=== PATIENT | male | born 1975 | race Caucasian/White ===

== ENCOUNTER 2017-11-24 13:09 | Observation (INO) | payer OTHER ==
[~2017-11-24] VITALS: Ht 177.8 cm; Wt 65.9 kg
[2017-11-24 13:21] VITALS: BP 145/82; PULSE 100; RESP 18; O2SAT 100
--- NOTE | 2017-11-24 13:58 | PD ---
HPI Chief Complaint: Chest Pain Time Seen by Provider: 13:38 Travel History International Travel<30 days: No Contact w/Intl Traveler<30days: No Traveled to known affect area: No History of Present Illness HPI 42-year-old male complains chest pain. Patient states that he started having left-sided chest pain last night. Patient states the pain aching pain localized to left lower rib cage area. Patient states that the pain radiated to the epigastric substernal area. Patient states that the pain got better since then. Patient states that he is feeling soreness around epigastric area now. Patient denies any coughing congestion fever chills. Patient denies any nausea vomiting diaphoresis. Patient states that he had abnormal EKG in 2009 with some poor R-wave progression. Patient has a stress test done at that time it was normal. Patient denies history hypertension, diabetes, hyperlipidemia. Patient is non-smoker. Patient denies family history of CAD. PFSH Social History Alcohol Use: Yes Tobacco Use: No Substance Use: No Allergies-Medications (Allergen,Severity, Reaction): Coded Allergies: No Known Allergies (Unverified , 11/24/17) Review of Systems General / Constitutional: No: Fever Eyes: No: Visual changes HENT: No: Headaches Cardiovascular: Positive: Chest Pain or Discomfort Respiratory: No: Shortness of Breath Gastrointestinal: No: Abdominal Pain Genitourinary: No: Dysuria Musculoskeletal: No: Pain Skin: No Rash Neurologic: No: Weakness Psychiatric: No: Depression Endocrine: No: Polydipsia Hematologic/Lymphatic: No: Easy Bruising Physical Exam Narrative GENERAL: Well-nourished, well-developed patient. SKIN: Focused skin assessment warm/dry. HEAD: Normocephalic. EYES: No scleral icterus. No injection or drainage. NECK: Supple, trachea midline. No JVD or lymphadenopathy. CARDIOVASCULAR: Regular rate and rhythm without murmurs, gallops, or rubs. RESPIRATORY: Breath sounds equal bilaterally. No accessory muscle use. GASTROINTESTINAL: Abdomen soft, non-tender, nondistended. MUSCULOSKELETAL: No cyanosis, or edema. BACK: Nontender without obvious deformity. No CVA tenderness. Neurologic exam normal. Data Data Last Documented VS Vital Signs Date Time Temp Pulse Resp B/P (MAP) Pulse Ox O2 Delivery O2 Flow Rate FiO2 11/24/17 13:21 100 18 145/82 (103) 100 Room Air Orders Orders Electrocardiogram (11/24/17 13:50) Complete Blood Count With Diff (11/24/17 13:50) Comprehensive Metabolic Panel (11/24/17 13:50) Creatine Kinase (Cpk) (11/24/17 13:50) Troponin I (11/24/17 13:50) Prothrombin Time / Inr (Pt) (11/24/17 13:50) Act Partial Throm Time (Ptt) (11/24/17 13:50) Lipase (11/24/17 13:50) Chest, Single Ap (11/24/17 13:50) Iv Access Insert/Monitor (11/24/17 13:50) Ecg Monitoring (11/24/17 13:50) Oximetry (11/24/17 13:50) Labs Laboratory Tests Test 11/24/17 13:53 White Blood Count 7.9 TH/MM3 Red Blood Count 5.30 MIL/MM3 Hemoglobin 16.0 GM/DL Hematocrit 45.3 % Mean Corpuscular Volume 85.4 FL Mean Corpuscular Hemoglobin 30.1 PG Mean Corpuscular Hemoglobin Concent 35.3 % Red Cell Distribution Width 12.2 % Platelet Count 221 TH/MM3 Mean Platelet Volume 8.5 FL Neutrophils (%) (Auto) 79.5 % Lymphocytes (%) (Auto) 12.1 % Monocytes (%) (Auto) 6.6 % Eosinophils (%) (Auto) 1.0 % Basophils (%) (Auto) 0.8 % Neutrophils # (Auto) 6.3 TH/MM3 Lymphocytes # (Auto) 1.0 TH/MM3 Monocytes # (Auto) 0.5 TH/MM3 Eosinophils # (Auto) 0.1 TH/MM3 Basophils # (Auto) 0.1 TH/MM3 CBC Comment DIFF FINAL Differential Comment Prothrombin Time 10.8 SEC Prothromb Time International Ratio 1.1 RATIO Activated Partial Thromboplast Time 26.1 SEC Blood Urea Nitrogen 14 MG/DL Creatinine 0.93 MG/DL Random Glucose 95 MG/DL Total Protein 7.6 GM/DL Albumin 4.4 GM/DL Calcium Level 8.6 MG/DL Alkaline Phosphatase 62 U/L Aspartate Amino Transf (AST/SGOT) 20 U/L Alanine Aminotransferase (ALT/SGPT) 37 U/L Total Bilirubin 1.0 MG/DL Sodium Level 140 MEQ/L Potassium Level 4.0 MEQ/L Chloride Level 106 MEQ/L Carbon Dioxide Level 25.3 MEQ/L Anion Gap 9 MEQ/L Estimat Glomerular Filtration Rate 90 ML/MIN Total Creatine Kinase 64 U/L Troponin I LESS THAN 0.02 NG/ML Lipase 180 U/L MDM Medical Decision Making Medical Screen Exam Complete: Yes Emergency Medical Condition: Yes Interpretation(s) 1448 PM. EKG shows sinus rhythm nonspecific ST-T wave change. Last Impressions Chest X-Ray 11/24/17 1350 Signed Impressions: CONCLUSION: Hyperinflation suggesting COPD or reactive airway disease. No acute abnormality. 1456 PM. CBC within normal limits. CMP within normal limits. Cardiac enzymes are normal. Differential Diagnosis Differential diagnosis including musculoskeletal, angina, VT, PE, pneumothorax, GI issue. Narrative Course 42-year-old male with chest pain. Patient will be admitted to the chest pain center. Diagnosis Primary Impression: Chest pain Qualified Codes: R07.9 - Chest pain, unspecified Admitting Information Admitting Physician Requests: Observation Jacob Cullen MD Nov 24, 2017 13:57
[2017-11-24 14:14] LABS: AUTOMATED NEUTROPHIL # 6.3 TH/MM3 (1.8-7.7); BASOPHIL # 0.1 TH/MM3 (0-0.2); BASOPHIL % 0.8 % (0.0-2.0); EOSINOPHIL # 0.1 TH/MM3 (0-0.4); HEMATOCRIT 45.3 % (39.0-51.0); LYMPH % 12.1 % (9.0-44.0); MEAN CELL VOLUME 85.4 FL (80.0-100.0); MEAN CORPUSCULAR HEMOGLOBIN 30.1 PG (27.0-34.0); MEAN CORPUSCULAR HGB CONC 35.3 % (32.0-36.0); MEAN PLATELET VOLUME 8.5 FL (7.0-11.0); MONO % 6.6 % (0.0-8.0); MONOCYTE # 0.5 TH/MM3 (0-0.9); NEUT % 79.5 % (16.0-70.0); PLATELET COUNT 221 TH/MM3 (150-450); RED CELL DISTRIBUTION WIDTH 12.2 % (11.6-17.2); WHITE BLOOD COUNT 7.9 TH/MM3 (4.0-11.0)
[2017-11-24 14:20] LABS: INTERNATIONAL NORMALIZED RATIO 1.1 RATIO; PROTHROMBIN TIME - PATIENT 10.8 SEC (9.8-11.6)
[2017-11-24 14:23] LABS: ALBUMIN 4.4 GM/DL (3.4-5.0); ALT (GPT) 37 U/L (12-78); AST (GOT) 20 U/L (15-37); BICARBONATE 25.3 MEQ/L (21.0-32.0); BLOOD UREA NITROGEN 14 MG/DL (7-18); CALCIUM 8.6 MG/DL (8.5-10.1); CHLORIDE 106 MEQ/L (98-107); CREATININE 0.93 MG/DL (0.60-1.30); GLOMERULAR FILTRATION RATE 90 ML/MIN (>89); GLUCOSE,RANDOM 95 MG/DL (74-106); SODIUM (NA) 140 MEQ/L (136-145)
[2017-11-24 14:27] LABS: ALKALINE PHOSPHATASE 62 U/L (45-117); TOTAL PROTEIN 7.6 GM/DL (6.4-8.2); TROPONIN I LESS THAN 0.02 NG/ML (0.02-0.05)
--- NOTE | 2017-11-24 14:46 | RADRPT ---
EXAM DATE: 11/24/2017 2:43 PM EDT AGE/SEX: 42 years / Male INDICATIONS: Chest pain starting today. CLINICAL DATA: This is the patient's initial encounter. Patient reports that signs and symptoms have been present for 1 day and indicates a pain score of 5/10. MEDICAL/SURGICAL HISTORY: None. None. COMPARISON: No prior exams available for comparison. FINDINGS: Single view chest demonstrates a cardiac and mediastinal contours to be within normal limits. There i s mild hyperinflation suggesting possible COPD. The lungs are otherwise clear. The bony structures ar e intact. CONCLUSION: Hyperinflation suggesting COPD or reactive airway disease. No acute abnormality. Electronically signed by: Jose Hurt MD 11/24/2017 2:45 PM EDT
[2017-11-24] MEDS ORDERED: SODIUM CHLORIDE 0.9% FLUSH 10 ML FLUSH IV FLUSH PRN (15:15)
--- NOTE | 2017-11-24 15:35 | EKG ---
Date Performed: 11/24/2017 Time Performed: 13:16:53 PTAGE: 42 years EKG: Sinus rhythm WITH SINUS ARRHYTHMIA NORMAL ECG NO PREVIOUS TRACING DOCTOR: Phil Winston Interpretating Date/Time 11/24/2017 15:34:54
[2017-11-24 15:37] VITALS: BP 137/93
[2017-11-24] MEDS ORDERED: ACETAMINOPHEN 500 MG CPLT PO PRN (16:00)
[2017-11-24] MEDS ORDERED: ACETAMINOPHEN/HYDROcodone 325 MG/5 MG TAB PO PRN (16:00)
[2017-11-24] MEDS ORDERED: RESP: ALBUTEROL 2.5 MG/IPRATROPIUM 0.5 MG NEB (PRN) INH (16:00)
[2017-11-24] MEDS ORDERED: ONDANSETRON ODT 4 MG TAB PO PRN (16:00)
[2017-11-24] MEDS ORDERED: ALPRAZolam 0.25 MG TAB PO PRN (16:00)
[2017-11-24] MEDS ORDERED: cloNIDine HCL 0.1 MG TAB PO PRN (16:00)
--- NOTE | 2017-11-24 16:03 | HHI.HP ---
HPI Primary Care Physician Unknown Chief Complaint Chest pain History of Present Illness This is a 42-year-old male that presents to ED via private vehicle with complaint of chest discomfort. States he was awoken at 232 this morning with a discomfort in left lower rib area. States is very localized pain. Was mild. Lasted a few seconds and then discomfort radiated into the center of his chest. Symptoms lasted a few minutes and then turned into a soreness which lasted a few seconds. That soreness then continued to recur intermittently several more times each lasting a few seconds. He has not had discomfort since being in the ED. Denies associated shortness of breath, nausea, or diaphoresis. States he had a cardiac workup in 2009. At that time he states he had a normal stress test. Afterwards he saw his physician for further workup to try to figure out what could be causing discomforts. States he had endoscopy, CT, ultrasound, and MRI and really could not find the cause and then the symptoms resolved on 2011 and has not recurred. He was believed to be related to stress at that time. Denies recent illness. Denies fevers or chills. Review of Systems General: Patient denies fevers, chills, and recent travel. HEENT: Patient denies headache, sore throat, difficulty swallowing. Cardiovascular: Has the chest discomfort as mentioned above. Denies sensation of heart beating rapidly or irregularly. No syncope. Denies diaphoresis. Respiratory: Denies shortness of breath or inspirational chest discomfort. Denies coughing wheezing or hemoptysis. GI: Patient denies nausea, vomiting, diarrhea, abdominal pain, bloody stools. Musculoskeletal: Patient denies joint pain or edema. Denies calf pain or edema. Neurovascular: Patient denies numbness, tingling, weakness in extremities. Denies headache. Endocrine: Denies polyuria and polydipsia. Hematologic: Denies easy bruising. Skin: Denies rash or itching. Past Family Social History Allergies: Coded Allergies: No Known Allergies (Unverified , 11/24/17) Past Medical History Denies hypertension, hyperlipidemia, diabetes, and known CAD. Past Surgical History Hernia repair as a child. Active Ordered Medications Current Medications Medications (Trade) Dose Ordered Sig/Yana Route Start Time Stop Time Status Last Admin (NS Flush) 2 ml UNSCH PRN IV FLUSH 11/24/17 15:15 (NS Flush) 2 ml BID IV FLUSH 11/24/17 21:00 Family History Denies family history of CAD. Social History Lifetime non-smoker. Occasional alcohol. Denies illicit drugs. He is and has 2 children. Physical Exam Vital Signs Vital Signs Date Time Temp Pulse Resp B/P (MAP) Pulse Ox O2 Delivery O2 Flow Rate FiO2 11/24/17 15:37 96 18 137/93 (108) 98 11/24/17 13:21 100 18 145/82 (103) 100 Room Air 11/24/17 13:21 18 18 100 Room Air Physical Exam GENERAL: This is a well-nourished, well-developed patient, in no apparent distress. Patient speaks in clear complete sentences. Patient is pleasant. HEENT: Head is atraumatic and normocephalic. Neck is supple without lymphadenopathy and trachea is midline. No JVD or carotid bruits. CARDIOVASCULAR: Regular rate and rhythm without murmurs, gallops, or rubs. RESPIRATORY: Clear to auscultation. Breath sounds equal bilaterally. No wheezes , rales, or rhonchi. Left lower chest wall is tender. No use of accessory muscles. GASTROINTESTINAL: Abdomen is nontender, nondistended. Abdomen soft. No obvious pulsatile mass or bruit. No CVA tenderness. Strong femoral pulses bilaterally. Normal bowel sounds in all quadrants. MUSCULOSKELETAL: Patient is moving upper and lower extremities freely. No calf tenderness or edema, no Homans sign. Strong pulses in upper and lower extremities. NEUROLOGICAL: Patient is alert and oriented. Cranial nerves 2-12 are grossly intact. No focal deficits and speech is clear. SKIN: No rash and turgor is normal. Laboratory Laboratory Tests Test 11/24/17 13:53 White Blood Count 7.9 Red Blood Count 5.30 Hemoglobin 16.0 Hematocrit 45.3 Mean Corpuscular Volume 85.4 Mean Corpuscular Hemoglobin 30.1 Mean Corpuscular Hemoglobin Concent 35.3 Red Cell Distribution Width 12.2 Platelet Count 221 Mean Platelet Volume 8.5 Neutrophils (%) (Auto) 79.5 Lymphocytes (%) (Auto) 12.1 Monocytes (%) (Auto) 6.6 Eosinophils (%) (Auto) 1.0 Basophils (%) (Auto) 0.8 Neutrophils # (Auto) 6.3 Lymphocytes # (Auto) 1.0 Monocytes # (Auto) 0.5 Eosinophils # (Auto) 0.1 Basophils # (Auto) 0.1 CBC Comment DIFF FINAL Differential Comment Prothrombin Time 10.8 Prothromb Time International Ratio 1.1 Activated Partial Thromboplast Time 26.1 Blood Urea Nitrogen 14 Creatinine 0.93 Random Glucose 95 Total Protein 7.6 Albumin 4.4 Calcium Level 8.6 Alkaline Phosphatase 62 Aspartate Amino Transf (AST/SGOT) 20 Alanine Aminotransferase (ALT/SGPT) 37 Total Bilirubin 1.0 Sodium Level 140 Potassium Level 4.0 Chloride Level 106 Carbon Dioxide Level 25.3 Anion Gap 9 Estimat Glomerular Filtration Rate 90 Total Creatine Kinase 64 Troponin I LESS THAN 0.02 Lipase 180 Result Diagram: 11/24/17 1353 11/24/17 1353 Imaging Last 48 hours Impressions Chest X-Ray 11/24/17 1350 Signed Impressions: CONCLUSION: Hyperinflation suggesting COPD or reactive airway disease. No acute abnormality. Course EKG is sinus rhythm without significant ST segment depressions or elevations. Caprini VTE Risk Assessment Caprini VTE Risk Assessment: No/Low Risk (score <= 1) Caprini Risk Assessment Model Point Value = 1 Point Value = 2 Point Value = 3 Point Value = 5 Age 41-60 Minor surgery BMI > 25 kg/m2 Swollen legs Varicose veins or History of unexplained or recurrent spontaneous Oral contraceptives or hormone replacement Sepsis (< 1 month) Serious lung disease, including pneumonia (< 1 month) Abnormal pulmonary function Acute myocardial infarction Congestive heart failure (< 1 month) History of inflammatory bowel disease Medical patient at bed rest Age 61-74 Arthroscopic surgery Major open surgery (> 45 min) Laparoscopic surgery (> 45 min) Malignancy Confined to bed (> 72 hours) Immobilizing plaster cast Central venous access Age >= 75 History of VTE Family history of VTE Factor V Leiden Prothrombin [id number] Lupus anticoagulant Anticardiolipin antibodies Elevated serum homocysteine Heparin-induced thrombocytopenia Other congenital or acquired thrombophilia Stroke (< 1 month) Elective arthroplasty Hip, pelvis, or leg fracture Acute spinal cord injury (< 1 month) Prophylaxis Regimen Total Risk Factor Score Risk Level Prophylaxis Regimen 0-1 Low Early ambulation 2 Moderate Order ONE of the following: *Sequential Compression Device (SCD) *Heparin 5000 units SQ BID 3-4 Higher Order ONE of the following medications: *Heparin 5000 units SQ TID *Enoxaparin/Lovenox 40 mg SQ daily (WT < 150 kg, CrCl > 30 mL/min) *Enoxaparin/Lovenox 30 mg SQ daily (WT < 150 kg, CrCl > 10-29 mL/min) *Enoxaparin/Lovenox 30 mg SQ BID (WT < 150 kg, CrCl > 30 mL/min) AND/OR *Sequential Compression Device (SCD) 5 or more Highest Order ONE of the following medications: *Heparin 5000 units SQ TID (Preferred with Epidurals) *Enoxaparin/Lovenox 40 mg SQ daily (WT < 150 kg, CrCl > 30 mL/min) *Enoxaparin/Lovenox 30 mg SQ daily (WT < 150 kg, CrCl > 10-29 mL/min) *Enoxaparin/Lovenox 30 mg SQ BID (WT < 150 kg, CrCl > 30 mL/min) AND *Sequential Compression Device (SCD) Assessment and Plan Assessment and Plan * Chest pain: Patient will continue to have serial cardiac enzymes and EKGs for ruling out purposes. He will be seen by Dr. Nino of cardiology in the chest pain center. He will likely have a Dann protocol ETT in the morning if he rules out. Patient will be discharged home with instructions to follow-up PCP if his stress test is nonischemic. Patient should return to ED for interval issues. Patient is stable at this time. He is agreeable to this plan. Mohit Martinez Nov 24, 2017 16:03
[2017-11-24 17:05] VITALS: BP 120/75; PULSE 72; RESP 17; TEMP 97.7; O2SAT 97
[2017-11-24 17:57] LABS: TROPONIN I LESS THAN 0.02 NG/ML (0.02-0.05)
[2017-11-24 18:48] VITALS: PULSE 72
--- NOTE | 2017-11-24 20:49 | EKG ---
Date Performed: 11/24/2017 Time Performed: 17:34:16 PTAGE: 42 years EKG: Sinus rhythm NORMAL ECG NO PREVIOUS TRACING DOCTOR: Phil Winston Interpretating Date/Time 11/24/2017 20:48:16
[2017-11-24] MEDS: SODIUM CHLORIDE 0.9% FLUSH 10 ML FLUSH IV FLUSH SCH (21:23)
[2017-11-24 21:39] LABS: TROPONIN I LESS THAN 0.02 NG/ML (0.02-0.05)
[2017-11-25 00:27] VITALS: BP 100/56; PULSE 70; RESP 20; TEMP 98.2; O2SAT 93
[2017-11-25 00:30] VITALS: PULSE 56
[2017-11-25 04:00] VITALS: PULSE 55
[2017-11-25 04:51] VITALS: BP 104/64; PULSE 59; RESP 20; TEMP 97.8; O2SAT 98
--- NOTE | 2017-11-25 07:07 | EKG ---
Date Performed: 11/24/2017 Time Performed: 20:58:24 PTAGE: 42 years EKG: Sinus rhythm NORMAL ECG PREVIOUS TRACING : 11/24/2017 17.34 No significant change from previous tracing noted. DOCTOR: Phil Winston Interpretating Date/Time 11/25/2017 07:05:54
[2017-11-25 08:00] VITALS: PULSE 56
[2017-11-25 08:22] VITALS: BP 102/58; PULSE 70; RESP 18; TEMP 98.2; O2SAT 98
[2017-11-25] MEDS: SODIUM CHLORIDE 0.9% FLUSH 10 ML FLUSH IV FLUSH SCH (10:23)
--- NOTE | 2017-11-25 13:40 | RADRPT ---
EXAM DATE: 11/25/2017 1:26 PM EDT AGE/SEX: 42 years / Male INDICATIONS: Angina. . Left chest pain. CLINICAL DATA: This is the patient's initial encounter. Patient reports that signs and symptoms have been present for 1 day and indicates a pain score of 4/10. MEDICAL/SURGICAL HISTORY: None. None. COMPARISON: No prior exams available for comparison. DOSE: 8.8 mCi Tc 99m Myoview at rest 27.2 mCi [id number] at stress REST HEART RATE: 85 BPM TARGET HEART RATE: 152 BPM MAX HEART RATE: 162 BPM REST BLOOD PRESSURE: 120/80 mmHg MAX BLOOD PRESSURE: 128/72 mmHg EJECTION FRACTION: 65 % TECHNIQUE: The patient underwent upright treadmill exercise in the chest pain center. Continuous EC G tracing was monitored during stress. Gated SPECT imaging was performed after stress, and conventio nal SPECT imaging was performed at rest. The examination was performed on a SPECT /CT scanner, both attenuation-corrected and non-corrected datasets were reviewed. FINDINGS: Distribution: The maximum perfused segment at stress is in the septum and inferior wall. Small fixed defect anterior wall. Perfusion: There is no redistribution. Got Gated Study: There are intact wall motion and wall thickening without hypokinetic or dyskinetic segme nts. The ejection fraction is calculated at 65%. RISK CATEGORY: Low (<1% Annual Motality Rate) CONCLUSION: 1. Negative for stress-induced ischemia Electronically signed by: Carlos Hurt MD 11/25/2017 1:39 PM EDT
--- NOTE | 2017-11-25 13:50 | HHI.DCPOC ---
Discharge Care Plan Diagnosis: (1) Atypical chest pain Goals to Promote Your Health * To prevent worsening of your condition and complications * To maintain your health at the optimal level Directions to Meet Your Goals Take your medications as prescribed Follow your dietary instruction Follow activity as directed Keep your appointments as scheduled Take your immunizations and boosters as scheduled If your symptoms worsen call your PCP, if no PCP go to Urgent Care Center or Emergency Room Smoking is Dangerous to Your Health. Avoid second hand smoke Call the 24-hour hour crisis hotline for domestic abuse at Sana Linares Nov 25, 2017 13:50
--- NOTE | 2017-11-25 14:07 | HHI.DS ---
Discharge Summary Admission Date Nov 24, 2017 at 15:10 Admitting Diagnosis Chest pain (1) Atypical chest pain Diagnosis: Principal ICD Codes: R07.89 - Other chest pain Status: Resolved Procedures Last 48 hours Impressions Myocardial Perfusion Scan Nuc Med 11/25/17 0000 Signed Impressions: CONCLUSION: 1. Negative for stress-induced ischemia Chest X-Ray 11/24/17 1350 Signed Impressions: CONCLUSION: Hyperinflation suggesting COPD or reactive airway disease. No acute abnormality. Brief History 42-year-old male with no past significant history epigastric pain. Admitted chest pain center. ACS ruled out with 3 sets of EKGs and cardiac enzymes. Seen and evaluated by Dr. Ellie Nino. Completed nuclear exercise stress test which was unremarkable. Discharge home with follow-up with PCP. Encouraged to establish with a primary care provider. CBC/BMP: 11/24/17 1353 11/24/17 1353 Significant Findings Laboratory Tests Test 11/24/17 13:53 11/24/17 17:15 11/24/17 20:48 Neutrophils (%) (Auto) 79.5 % (16.0-70.0) Troponin I LESS THAN 0.02 NG/ML LESS THAN 0.02 NG/ML LESS THAN 0.02 NG/ML PE at Discharge GENERAL: Alert WN, WD, NAD, pleasant, male HEAD: NC, AT CV: RRR, without murmur, rub, gallop, no JVD, S1-S2 no S3-S4. RESP: Clear lungs throughout bilateral, no crackles, wheeze, rhonchi, symmetrical chest rise, nonlabored, able to speak in full sentenceso scoliosis EXT: Pulses +2-4, no dependent edema MS: Normal tone x4 extremities, no obvious deformities, full range of motion NEURO: CN II through CN XII grossly intact, motor strength 5/5, gait WNL PSYCH: A+O x3, pleasant affect, appropriate speech, mood, insight and judgment SKIN: Normal turgor, normal texture, no lesions, no rashes, brisk cap refill, even hair distribution Pt Condition on Discharge: Good Discharge Disposition: Discharge Home Discharge Instructions DIET: Follow Instructions for: Heart Healthy Diet Activities you can perform: Regular-No Restrictions Sana Linares Nov 25, 2017 14:07
--- NOTE | 2017-11-25 18:12 | TR ---
Date Performed: 11/25/2017 Time Performed: 09:41:37 DOCTOR: Ellie Nino DRUG LIST: CLINICAL HISTORY: CHEST PAIN REASON FOR TEST: REASON FOR ENDING: OBSERVATION: CONCLUSION: Dann protocol completed. Baseline st segment changes upon standing, not on baseline Ekg. Attempted to walk to determine if st segments improve with walking, however no changes noted. W ill switch to nuclear ett. COMMENTS: baseline ST changes-
--- NOTE | 2017-11-25 18:12 | TR ---
Date Performed: 11/25/2017 Time Performed: 11:47:30 DOCTOR: Ellie Nino DRUG LIST: CLINICAL HISTORY: CHEST PAIN REASON FOR TEST: REASON FOR ENDING: OBSERVATION: CONCLUSION: Dann procotol completed. Stopped sec to exceeding target heart rate and leg fatigue . Maximum MW=925 Target HR Hjnjllmf=326.0% Maximum WJ=088/78 Total Exercise Time=7:17. No reprod ches t pain. Nonspecific ST seg changes at baseline, interior st depression 1-2mm at baseline and during e xam. Nuclear images pending. Good bp response. Good exercise tolerance. Recovery quick and unremarkab le. COMMENTS: No ischemia
== END 2017-11-25 15:22 | disposition home or self-care (01) ==
LOC: NEPC 13:09 → NEDA 15:10 → NEPHCDU 15:58
PROVIDERS: ADMIT Internal Medicine Interventional Cardiology; ATTEND Internal Medicine Interventional Cardiology
DX: R07.89 Other chest pain (principal); I49.8 Other specified cardiac arrhythmias; R94.31 Abnormal electrocardiogram [ECG] [EKG]
CPT/HCPCS: 71045; 78452; 80053; 82550; 83690; 84484; 85025; 85610; 85730; 93005; 93017; 99285; A9502; G0378